=== PATIENT | female | born 1945 | race African-American/Black ===

== ENCOUNTER 2022-11-29 12:29 | Emergency (ER) | payer MEDICAID, OTHER, SELFPAY ==
[2022-11-29 13:36] LABS: #Eosinphils 0.2 10x3/uL (0.0-0.5); #Monocytes 0.7 10x3/uL (0.0-1.1); #Neutrophils 4.3 10x3/uL (1.5-8.4); %Basophils 0.5 % (0.0-2.0); %Lymphocytes 37.3 % (18.0-47.0); %Monocytes 7.8 % (0.0-10.0); %Neutrophils 51.9 % (40.0-75.0); Hemoglobin 10.8 g/dL (12.0-15.5); Mean Corpuscular HGB CONC 33.3 g/dL (32.0-36.0); Mean Corpuscular Hemoglobin 31.8 pg (27.0-33.0); Mean Corpuscular Volume 95.3 fl (81.6-98.3); Mean Platelet Volume 11.2 fl (7.4-10.4); Platelet Count 125 10x3/uL (150-450); RBC Distribution Width 13.8 % (11.5-14.5); White Blood Cell (WBC) Count 8.3 10x3/uL (3.5-10.5)
[2022-11-29 13:44] LABS: ALT (SGPT) 9 U/L (8-55); AST (SGOT) 26 U/L (5-34); Alkaline Phosphatase 79 U/L (40-110); Anion Gap 14 mmol/L (10-20); BUN (Urea Nitrogen) 17 mg/dL (9.8-20.1); Bilirubin, Total 0.2 mg/dL (0.2-1.2); Calc. Creatinine Clearance 0 mL/min (70-130); Calcium 8.7 mg/dL (7.8-10.44); Carbon Dioxide 27 mmol/L (23-31); Chloride 102 mmol/L (98-107); Estimated GFR 18; Globulin 5.3 g/dL (2.4-3.5); Glucose 81 mg/dL (83-110); Potassium 3.4 mmol/L (3.5-5.1); Protein, Total 8.3 g/dL (5.8-8.1); Sodium 140 mmol/L (136-145)
== END 2022-11-29 17:04 | disposition home or self-care (01) ==
LOC: CSHERS 12:29
DX: R55 Syncope and collapse (principal); K21.9 Gastro-esophageal reflux disease without esophagitis; I12.9 Hypertensive chronic kidney disease with stage 1 through stage 4 chronic kidney disease, or unspecified chronic kidney disease; N18.9 Chronic kidney disease, unspecified
CPT/HCPCS: 71045; 80053; 83605; 85025; 93005

== ENCOUNTER 2023-04-20 15:47 | Inpatient (IN) | payer MEDICARE, MEDICAID ==
[2023-04-20 16:26] LABS: #Basophils 0.1 10x3/uL (0.0-0.2); #Eosinphils 0.1 10x3/uL (0.0-0.5); #Monocytes 1.3 10x3/uL (0.0-1.1); #Neutrophils 11.1 10x3/uL (1.5-8.4); %Basophils 0.3 % (0.0-2.0); %Eosinophils 0.8 % (0.0-6.0); %Lymphocytes 16.3 % (18.0-47.0); %Monocytes 8.7 % (0.0-10.0); %Neutrophils 73.1 % (40.0-75.0); Hemoglobin 9.6 g/dL (12.0-15.5); Mean Corpuscular HGB CONC 33.4 g/dL (32.0-36.0); Mean Corpuscular Volume 92.6 fl (81.6-98.3); Platelet Count 226 10x3/uL (150-450); RBC Distribution Width 15.6 % (11.5-14.5); White Blood Cell (WBC) Count 15.2 10x3/uL (3.5-10.5)
[2023-04-20 16:40] LABS: ALT (SGPT) 8 U/L (8-55); AST (SGOT) 19 U/L (5-34); Albumin 2.4 g/dL (3.4-4.8); Alkaline Phosphatase 88 U/L (40-110); Anion Gap 13 mmol/L (10-20); BUN (Urea Nitrogen) 10 mg/dL (9.8-20.1); Bilirubin, Total 0.5 mg/dL (0.2-1.2); Calc. Creatinine Clearance 0 mL/min (70-130); Calcium 8.5 mg/dL (7.8-10.44); Carbon Dioxide 26 mmol/L (23-31); Chloride 104 mmol/L (98-107); Estimated GFR 27; Globulin 4.5 g/dL (2.4-3.5); Glucose 88 mg/dL (83-110); Potassium 3.8 mmol/L (3.5-5.1); Protein, Total 6.9 g/dL (5.8-8.1); Sodium 139 mmol/L (136-145)
[2023-04-20 20:10] LABS: Magnesium 1.9 mg/dL (1.6-2.6)
[2023-04-20] MEDS ORDERED: Cefepime 2 GM VIAL ONE (20:18)
[2023-04-20] MEDS ORDERED: Vancomycin 1.5 GRAM/300 ML BAG 1.5 GM in Premix Bag 1 BAG IVPB SCH (20:30)
[2023-04-20] MEDS ORDERED: Vancomycin 1 GM in Premix Bag 1 BAG IVPB SCH (21:00)
[2023-04-20] MEDS ORDERED: Ondansetron ODT 4 MG TAB PO PRN (21:04)
[2023-04-20] MEDS ORDERED: Vancomycin Hemodialysis Sliding Scale FS SCH (21:45)
[2023-04-20] MEDS ORDERED: Acetaminophen 325 MG TAB ONE (22:00)
[2023-04-20] MEDS: Loratadine 10 MG TAB PO SCH (22:11)
[2023-04-20] MEDS: Acetaminophen 325 MG TAB PO PRN (22:12)
[2023-04-21] MEDS: Heparin 5,000 UNITS/ML VIAL SC SCH ×4 (00:04→21:35)
[2023-04-21] MEDS ORDERED: Heparin 5,000 UNITS/ML VIAL ONE ×2 (00:05→09:13)
[2023-04-21 04:59] LABS: #Basophils 0.1 10x3/uL (0.0-0.2); #Eosinphils 0.2 10x3/uL (0.0-0.5); #Monocytes 1.4 10x3/uL (0.0-1.1); #Neutrophils 8.9 10x3/uL (1.5-8.4); %Basophils 0.4 % (0.0-2.0); %Eosinophils 1.2 % (0.0-6.0); %Monocytes 10.4 % (0.0-10.0); %Neutrophils 65.3 % (40.0-75.0); Mean Corpuscular HGB CONC 32.3 g/dL (32.0-36.0); Mean Corpuscular Hemoglobin 30.3 pg (27.0-33.0); Mean Corpuscular Volume 93.9 fl (81.6-98.3); Mean Platelet Volume 8.9 fl (7.4-10.4); Platelet Count 228 10x3/uL (150-450); RBC Distribution Width 15.9 % (11.5-14.5); Red Blood Cell (RBC) Count 2.97 10x6/uL (3.90-5.03); White Blood Cell (WBC) Count 13.7 10x3/uL (3.5-10.5)
[2023-04-21 05:11] LABS: Anion Gap 16 mmol/L (10-20); BUN (Urea Nitrogen) 14 mg/dL (9.8-20.1); Calc. Creatinine Clearance 20 mL/min (70-130); Calcium 8.6 mg/dL (7.8-10.44); Carbon Dioxide 23 mmol/L (23-31); Chloride 105 mmol/L (98-107); Estimated GFR 19; Glucose 76 mg/dL (83-110); Potassium 3.8 mmol/L (3.5-5.1); Sodium 140 mmol/L (136-145)
[2023-04-21] MEDS ORDERED: Morphine 4 MG/ML VIAL ONE (06:24)
[2023-04-21] MEDS ORDERED: Ferrous Gluconate 324 MG TAB PO SCH (08:00)
[2023-04-21] MEDS ORDERED: Multivitamin W/ Minerals 1 TAB ONE (09:14)
[2023-04-21] MEDS ORDERED: Lansoprazole 3 MG/ML ORAL SUSPENSION PO SCH (09:30)
[2023-04-21] MEDS: Multivitamin W/ Minerals 1 TAB PO SCH (10:13)
[2023-04-21] MEDS: Timolol 0.5% Ophth Soln 5 ml Bottle EA EYE SCH (10:14)
[2023-04-21] MEDS: Fludrocortisone Acetate 0.1 MG TAB PO SCH (10:15)
[2023-04-21] MEDS ORDERED: Acetaminophen 325 MG TAB ONE (12:01)
[2023-04-21] MEDS: Acetaminophen 325 MG TAB PO PRN (12:02)
[2023-04-21] MEDS ORDERED: Ipratropium/Albuterol 3 ML NEB NEB SCH (14:00)
[2023-04-21] MEDS ORDERED: Ipratropium/Albuterol 3 ML NEB ONE (14:07)
[2023-04-21] MEDS: Ipratropium/Albuterol 3 ML NEB NEB SCH ×3 (16:55→23:00)
[2023-04-21] MEDS: Lorazepam 2 MG/ML VIAL SLOW IVP PRN ×2 (17:54→23:27)
[2023-04-21] MEDS: Morphine 2 MG/ML VIAL SLOW IVP PRN ×2 (18:05→22:57)
[2023-04-21] MEDS ORDERED: Cefepime 1 GM in Sodium Chloride 0.9% 100 ML IVPB SCH (21:00)
[2023-04-21] MEDS: Atropine Sulfate 1% Ophth Soln 5 ml Bottle PO SCH ×3 (21:30→22:59)
[2023-04-21] MEDS: Loratadine 10 MG TAB PO SCH (21:31)
[2023-04-22] MEDS: Ipratropium/Albuterol 3 ML NEB NEB SCH ×6 (00:15→23:01)
[2023-04-22] MEDS: Atropine Sulfate 1% Ophth Soln 5 ml Bottle PO SCH ×9 (00:41→17:28)
[2023-04-22] MEDS ORDERED: Sodium Chloride 0.9% 500 ML IV SCH ×2 (05:00→06:45)
[2023-04-22 05:51] LABS: Hemoglobin 7.5 g/dL (12.0-15.5); MDiff Complete? YES; Mean Corpuscular HGB CONC 31.9 g/dL (32.0-36.0); Mean Corpuscular Hemoglobin 30.9 pg (27.0-33.0); Mean Corpuscular Volume 96.7 fl (81.6-98.3); Mean Platelet Volume 9.2 fl (7.4-10.4); Platelet Count 211 10x3/uL (150-450); RBC Distribution Width 15.9 % (11.5-14.5); Red Blood Cell (RBC) Count 2.43 10x6/uL (3.90-5.03); White Blood Cell (WBC) Count 17.7 10x3/uL (3.5-10.5)
[2023-04-22 06:07] LABS: Anion Gap 14 mmol/L (10-20); BUN (Urea Nitrogen) 22 mg/dL (9.8-20.1); Calc. Creatinine Clearance 13 mL/min (70-130); Calcium 8.2 mg/dL (7.8-10.44); Carbon Dioxide 25 mmol/L (23-31); Chloride 107 mmol/L (98-107); Eosinophils 1 % (0-10); Estimated GFR 11; Glucose 90 mg/dL (83-110); Lymphocytes 27 % (21-51); Monocytes 5 % (0-10); Neutrophil 64 % (42-75); Potassium 4.2 mmol/L (3.5-5.1); Reactive Lymphocytes 3 % (0-10); Sodium 142 mmol/L (136-145)
[2023-04-22 06:08] LABS: Anisocytosis SLIGHT = 6-15 cells (100X) (0-5/hpf); Hypochromia SLIGHT = 6-15 cells (100X) (0-5/hpf); Platelet Adequacy Comment Appears Adequate
[2023-04-22] MEDS: Heparin 5,000 UNITS/ML VIAL SC SCH ×2 (08:55→15:17)
[2023-04-22] MEDS: Fludrocortisone Acetate 0.1 MG TAB PO SCH (08:55)
[2023-04-22] MEDS: Multivitamin W/ Minerals 1 TAB PO SCH (08:56)
[2023-04-22] MEDS ORDERED: Lansoprazole 3 MG/ML ORAL SUSPENSION PO SCH (09:00)
[2023-04-22] MEDS: Timolol 0.5% Ophth Soln 5 ml Bottle EA EYE SCH (09:32)
[2023-04-22 16:08] VITALS: BP 116/64; TEMP 97.9
== END 2023-04-22 20:00 | disposition hospice, inpatient (51) | DRG 871 ==
LOC: SUATTDRO 15:47 → CSHERS 15:47 → CSHERHOLD 20:42 → CSHTELE 04-21 15:37
PROVIDERS: ADMIT Family Medicine; ATTEND Family Medicine
DX: A41.9 Sepsis, unspecified organism (principal); G93.41 Metabolic encephalopathy; N18.6 End stage renal disease; J90 Pleural effusion, not elsewhere classified; J94.2 Hemothorax; I12.0 Hypertensive chronic kidney disease with stage 5 chronic kidney disease or end stage renal disease; Z51.5 Encounter for palliative care; Z66 Do not resuscitate; F03.90 Unspecified dementia, unspecified severity, without behavioral disturbance, psychotic disturbance, mood disturbance, and anxiety; K21.9 Gastro-esophageal reflux disease without esophagitis; D63.1 Anemia in chronic kidney disease; G40.909 Epilepsy, unspecified, not intractable, without status epilepticus; Z74.01 Bed confinement status; Z99.2 Dependence on renal dialysis; Z79.899 Other long term (current) drug therapy
CPT/HCPCS: 36415; 71045; 80048; 80053; 83605; 83735; 83880; 84484; 85025; 87040; 93005; 94640; 94760; 94762; 96365; 96366; 96367; J0692; J1644; J2060; J2270; J2272; J3370; J3490; J7030; J7620

== ENCOUNTER 2023-04-22 23:31 | Inpatient (IN) | payer MEDICARE, MEDICAID ==
[2023-04-23 00:37] VITALS: BMI 27.2
[2023-04-23] MEDS ORDERED: Morphine 4 MG/ML VIAL SLOW IVP PRN (00:43)
[2023-04-23] MEDS ORDERED: Atropine Sulfate 1% Ophth Soln 5 ml Bottle PO PRN (00:45)
[2023-04-23] MEDS ORDERED: Scopolamine 1.5 mg/72 hour Patch TOP PRN (00:45)
[2023-04-23] MEDS ORDERED: Lorazepam 2 MG/ML VIAL SLOW IVP PRN (00:45)
[2023-04-23] MEDS ORDERED: Ondansetron PF 4 MG/2 ML Vial IVP PRN (00:45)
[2023-04-23] MEDS ORDERED: Acetaminophen 650 MG Suppository PR PRN (00:45)
[2023-04-23] MEDS ORDERED: Bisacodyl 10 MG SUPP PR PRN (00:46)
[2023-04-23 08:06] VITALS: BP 124/63; TEMP 97.6
== END 2023-04-23 17:57 | disposition expired | DRG 951 ==
LOC: CSHTELE 23:31
PROVIDERS: ADMIT Family Medicine; ATTEND Family Medicine
DX: Z51.5 Encounter for palliative care (principal); A41.02 Sepsis due to Methicillin resistant Staphylococcus aureus; G93.41 Metabolic encephalopathy; N18.6 End stage renal disease; I12.0 Hypertensive chronic kidney disease with stage 5 chronic kidney disease or end stage renal disease; F03.90 Unspecified dementia, unspecified severity, without behavioral disturbance, psychotic disturbance, mood disturbance, and anxiety; K21.9 Gastro-esophageal reflux disease without esophagitis; G40.909 Epilepsy, unspecified, not intractable, without status epilepticus; Z79.899 Other long term (current) drug therapy
CPT/HCPCS: J2060